=== PATIENT | male | born 1985 | race Caucasian/White ===

== ENCOUNTER → 2023-06-22 10:35 | Outpatient (CLI) | payer BC, SELFPAY ==
--- NOTE | 2023-06-22 10:37 | DI.RAD.S_ITS ---
PROCEDURE: XR KNEE RT 3V INDICATIONS: Knee pain TECHNIQUE: 3 views of the knee were acquired. COMPARISON: None. FINDINGS: Bones: No fractures or dislocations. No suspicious bony lesions. Soft tissues: No joint effusion. No suspicious soft tissue calcifications. IMPRESSION: No acute osseous abnormality. Dictated by: Shantell Vigil M.D. on 06/22/2023 at 12:33 Approved by: Shantell Vigil M.D. on 06/22/2023 at 12:34
== END ==
PROVIDERS: Referring Provider Nurse Practitioner Family; Visit Provider Nurse Practitioner Family
DX: M25.561 Pain in right knee (principal)
CPT/HCPCS: 73562

== ENCOUNTER 2023-10-30 14:05 | Emergency (ER) | payer BC, SELFPAY ==
[2023-10-30] VITALS (7 sets, daily range): BP systolic 119–138; BP diastolic 82–99; PULSE 45–82; RESP 12–18; TEMP 36.8–36.9; O2SAT 97–100; BMI 27.7
[2023-10-30] MEDS: ONDANSETRON 4 MG ODT PO (14:59)
[2023-10-30 15:22] LABS: Add Manual Diff / Slide Review NO; Basophils Absolute Auto 100 /uL (0-100); Basophils Percent Auto 0.9 % (0-2); Eosinophils Absolute Auto 300 /uL (0-450); Eosinophils Percent Auto 3.4 % (2-4); Hematocrit 44.6 % (41-53); Hemoglobin 15.2 g/dL (13.5-17.5); Lymphocytes Absolute Auto 3400 /uL (1100-4500); Lymphocytes Percent Auto 38.7 % (25-40); Mean Corpuscular HGB Conc 34.2 % (30-36); Mean Corpuscular Hemoglobin 31.6 PG (26-34); Mean Corpuscular Volume 92.5 fL (80-100); Monocytes Absolute Auto 600 /uL (0-900); Monocytes Percent Auto 6.6 % (3-14); Neutrophils Absolute Auto 4400 /uL (1500-7000); Neutrophils Percent Auto 50.4 % (50-75); Platelet Count 249 X10^3/uL (150-400); Red Blood Cell Count 4.82 X10^6/uL (4.5-5.9); Red Cell Distribution Width 13.5 % (11.6-14.8); White Blood Cell Count 8.7 X10^3/uL (4.5-11.0)
[2023-10-30 15:36] LABS: Alanine Aminotransferase 28 IU/L (<50); Albumin 4.4 g/dL (3.5-5.0); Albumin Globulin Ratio 1.3 (1.0-2.8); Alkaline Phosphatase 50 U/L (38-126); Aspartate Aminotransferase 39 IU/L (17-59); BUN Creatinine Ratio 25.8 (6-22); Bilirubin Total 0.7 mg/dL (0.2-1.3); Blood Urea Nitrogen 17 mg/dL (9-20); Calcium 8.6 mg/dL (8.4-10.2); Carbon Dioxide 20 mmol/L (22-32); Chloride 105 mmol/L (98-107); Estimated Glomerular Filt Rate > 60 mL/min (>60); Globulin 3.5 g/dL (1.7-4.1); Glucose 110 mg/dL (70-100); Lipase 49 U/L (23-300); Potassium 3.6 mmol/L (3.4-5.1); Sodium 137 mmol/L (137-145); Total Protein 7.9 g/dL (6.3-8.2)
[2023-10-30 15:38] LABS: HEMOLYSIS 84 (0-50)
--- NOTE | 2023-10-30 21:11 | DI.CT.S_ITS ---
PROCEDURE: CT ABDOMEN PELVIS W CON INDICATIONS: MIDEPIGASTRIC ABD PAIN/NAUSEA/CHEST PAIN TECHNIQUE: After the administration of intravenous contrast, axial sections acquired from the lung bases to the pubic symphysis. Coronal and sagittal reformats were performed. For radiation dose reduction, the following was used: automated exposure control, adjustment of mA and/or kV according to patient size. COMPARISON: None. FINDINGS: Image quality: Diagnostic. Lower Chest: No significant findings. ABDOMEN: Liver: No solid mass. Gallbladder: No radiopaque gallstones or wall thickening. Biliary ducts: No biliary dilation. Pancreas: No ductal dilation. Spleen: Size is within normal limits. Adrenal Glands: No adrenal nodules. Kidneys and Ureters: No hydronephrosis. No solid mass. No complex renal cystic lesion which requires follow up. Stomach and Bowel: Normal colonic caliber, without significant wall thickening. Peritoneum: No abnormal intraperitoneal fluid. No free air. Ventral Wall: No significant ventral hernia. Abdominal Nodes: No retroperitoneal or mesenteric adenopathy by size criteria. Vessels: Aorta and inferior vena cava are normal in size. PELVIS: Pelvic Organs: Unremarkable. Bladder: No bladder wall thickening, accounting for underdistention. Pelvic Nodes: No enlarged lymph nodes. Miscellaneous: No inguinal hernias are seen. Bones: No acute or suspicious osseous abnormality. IMPRESSION: No acute findings in the abdomen or pelvis to explain patient's symptoms. Approved by: Renu Rojas M.D. on 10/30/2023 at 22:38
--- NOTE | 2023-10-30 21:12 | ED_ITS ---
HPI - Abdominal Pain General Chief Complaint: Abdominal Pain Stated Complaint: sent by [facility], ABD pain/nausea/chest pain Time Seen by Provider: 10/30/23 20:58 Source: patient Mode of arrival: Ambulatory History of Present Illness HPI narrative: 38-year-old male with no reported past medical history presents with 3-4 days of generalized burning abdominal pain and 1 day of central chest pain. Patient stated that he was trying to outlast symptoms at home, but when he began to experience chest pain he became concerned and went to the walk-in clinic. Walk- in clinic referred him to the emergency department. Pain is intermittent, seems to get worse after eating. No medications taken at home for symptoms. Denies history of cigarette smoking, endorses drinking 3-4 alcoholic beverages nightly. Related Data Previous Rx's Medication Instructions Recorded famotidine 20 mg tablet (Pepcid) 20 mg PO BID #30 tabs 10/30/23 omeprazole 20 mg capsule,delayed 20 mg PO BID #30 caps 10/30/23 release sucralfate 1 gram tablet (Carafate) 1 g PO TID #60 tabs 10/30/23 Allergies Allergy/AdvReac Type Severity Reaction Status Date / Time No Known Drug Allergies Allergy Unverified 06/22/23 10:26 Review of Systems Review of Systems Narrative: Negative except as noted above Patient History Social History Smoking Status: Never smoker Smoking Status: Never smoker alcohol intake frequency: 3 or more drinks per day Substance Use Type: does not use Exam Initial Vital Signs Initial Vital Signs: Vital Signs Temperature 98.4 F 10/30/23 14:20 Pulse Rate 82 10/30/23 14:20 Respiratory Rate 18 10/30/23 14:20 Blood Pressure 130/99 H 10/30/23 14:20 Pulse Oximetry 97 10/30/23 14:20 Oxygen Delivery Method Room Air 10/30/23 14:20 Const: Awake, alert, no acute distress, nontoxic appearing Eyes: PERRL, EOMI, conjunctiva normal ENT: Atraumatic, dentition normal, mucous membranes moist Cardiac: regular rate, regular rhythm RESP: unlabored, clear bilaterally, no wheezing GI: Atraumatic, soft, nontender, nondistended, no rebound, no guarding MSK: Atraumatic, full range of motion, pulses equal Skin: Warm, Dry, intact, no rashes Neuro: AO x3, CN II-XII grossly intact, moves all extremities Psych: affect normal, mood normal, not suicidal, not homicidal Course Orders Ordered: Discontinued Medications Ondansetron HCl (Ondansetron 4 Mg/2 Ml Inj) 4 mg IV NOW PRN PRN Reason: Nausea And Vomiting Ondansetron HCl (Ondansetron 4 Mg Odt) 4 mg PO NOW PRN PRN Reason: Nausea And Vomiting Last Admin: 10/30/23 14:59 Dose: 4 mg Documented By: MIMI Ondansetron HCl (Ondansetron 4 Mg/2 Ml Inj) 4 mg IV NOW ONE Stop: 10/30/23 21:12 Vital Signs Vital signs: Vital Signs - 8 hr 10/30/23 23:00 10/30/23 23:00 Pulse Rate 66 Respiratory Rate 16 Blood Pressure 128/88 Pulse Oximetry 98 Oxygen Delivery Method Room Air MDM - Abdominal Pain Differential Diagnosis Differential diagnosis: Likely abdominal pain, acute appendicitis and calculus of kidney Lab Data 10/30/23 14:55 10/30/23 14:55 Labs: Lab Results 10/30/23 10/30/23 Range/Units 14:55 21:30 WBC 8.7 (4.5-11.0) X10^3/uL RBC 4.82 (4.5-5.9) X10^6/uL Hgb 15.2 (13.5-17.5) g/dL Hct 44.6 (41-53) % MCV 92.5 (80-100) fL MCH 31.6 (26-34) PG MCHC 34.2 (30-36) % RDW 13.5 (11.6-14.8) % Plt Count 249 (150-400) X10^3/uL Neut % (Auto) 50.4 (50-75) % Lymph % (Auto) 38.7 (25-40) % [place] % (Auto) 6.6 (3-14) % Eos % (Auto) 3.4 (2-4) % Baso % (Auto) 0.9 (0-2) % Neut # (Auto) 4400 (4129-4144) /uL Lymph # (Auto) 3400 (2924-3207) /uL [place] # (Auto) 600 (0-900) /uL Eos # (Auto) 300 (0-450) /uL Baso # (Auto) 100 (0-100) /uL Sodium 137 (137-145) mmol/L Potassium 3.6 (3.4-5.1) mmol/L Chloride 105 (98-107) mmol/L Carbon Dioxide 20 L (22-32) mmol/L BUN 17 (9-20) mg/dL Creatinine 0.66 (0.66-1.25) mg/dL Estimated GFR > 60 (>60) mL/min BUN/Creatinine Ratio 25.8 H (6-22) Glucose 110 H (70-100) mg/dL Calcium 8.6 (8.4-10.2) mg/dL Total Bilirubin 0.7 (0.2-1.3) mg/dL AST 39 (17-59) IU/L ALT 28 (<50) IU/L Alkaline Phosphatase 50 (38-126) U/L Total Creatine Kinase 113 (55-170) U/L Troponin I 0.019 (0.01-0.034) ng/mL Total Protein 7.9 (6.3-8.2) g/dL Albumin 4.4 (3.5-5.0) g/dL Globulin 3.5 (1.7-4.1) g/dL Albumin/Globulin Ratio 1.3 (1.0-2.8) Lipase 49 (23-300) U/L Point of care testing: Urine Dip Bedside Urine Glucose Negative Bedside Urine Bilirubin - Negative Bedside Urine Ketone - Negative Urine Specific [place] 1.020 Bedside Urine Occult Blood - Negative Bedside Urine pH 6.0 Bedside Urine Protein - Negative Bedside Urine Urobilinogen - Negative Bedside Urine Nitrite - Negative Bedside Urine Leukocytes - Negative Esterase MDM Narrative Medical decision making narrative: Well-appearing patient with abdominal pain and chest pain. Abdomen soft, does have midepigastric tenderness to deep palpation but no peritoneal signs. Chest Pain does not seem to be related to ACS, he has no known risk factors and heart score low. Laboratory work reviewed, unremarkable. Lipase not elevated, no leukocytosis, liver enzymes within normal limits, troponin negative, EKG sinus rhythm without concerning findings. CT of the abdomen and pelvis shows no acute findings. Patient counseled on all lab and imaging findings, counseled that symptoms may indicate gastritis or gastric ulcer, however this can not be diagnosed in the emergency department and require endoscopy. Patient counseled to modify diet to reduce acid or other stomach irritants. Plan to start Pepcid, Protonix, and Carafate. Referral given to general surgery to discuss possible endoscopy if symptoms do not improve with conservative management. ED return precautions discussed at bedside. Patient expressed understanding of the plan and is in agreement at this time. All questions answered at the time of discharge. Discharge Plan Departure Patient Disposition: Home Clinical Impression: Abdominal pain Instructions: DI for Gastritis Prescriptions: New sucralfate [Carafate] 1 gram tablet 1 g PO TID Qty: 60 0RF famotidine [Pepcid] 20 mg tablet 20 mg PO BID Qty: 30 0RF omeprazole 20 mg capsule,delayed release(DR/EC) 20 mg PO BID Qty: 30 0RF Referrals: Daniel Barber MD [Physician] - Miscellaneous,MD Manfred [Primary Care Provider] - Stand Alone Forms: Patient Portal/API
[2023-10-30 21:50] LABS: Creatine Kinase 113 U/L (55-170)
[2023-10-30 22:02] LABS: Troponin I 0.019 ng/mL (0.01-0.034)
== END 2023-10-30 23:22 | disposition home or self-care (01) ==
PROVIDERS: Emergency Medicine; Emergency Provider Emergency Medicine
DX: R10.84 Generalized abdominal pain (principal); R07.9 Chest pain, unspecified
CPT/HCPCS: 36415; 74177; 80053; 81003; 82550; 83690; 84484; 85025; 93005; 93010; 99283; 99284; Q9967